=== PATIENT | female | born 1995 | race Caucasian/White ===

== ENCOUNTER 2016-11-29 05:29 | Emergency (ER) | payer BC, OTHER ==
[2016-11-29 06:33] LABS: % IMMATURE GRANULYOCYTES 0.2 % (0.0-1.1); ABSOLUTE IMMATURE GRANULOCYTES 0.02 10^3/uL (0.00-0.10); ADD DIFF? NO; ADD MORPH? NO; ADD SCAN? NO; ATYPICAL LYMPHOCYTE FLAG 0 (0-99); FRAGMENT RBC FLAG 0 (0-99); HEMATOCRIT 42.5 % (38.0-47.0); HEMOGLOBIN 14.8 g/dL (12.6-16.3); LEFT SHIFT FLG 0 (0-99); LIPEMIA HEMOLYSIS FLAG 90 (0-99); MEAN CELL HEMOGLOBIN 32.8 pg (27.9-34.1); MEAN CELL HEMOGLOBIN CONCENTR. 34.8 g/dL (32.4-36.7); MEAN CELL VOLUME 94.2 fL (81.5-99.8); MEAN PLATELET VOLUME 9.4 fL (8.7-11.7); PLATELET CLUMPS FLAG 0 (0-99); PLATELET COUNT 362 10^3/uL (150-400); RED BLOOD CELL COUNT 4.51 10^6/uL (4.18-5.33); RED CELL DISTRIBUTION WIDTH 12.2 % (11.5-15.2)
[2016-11-29 06:51] LABS: ANION GAP 16 mEq/L (8-16); CALCIUM 9.3 mg/dL (8.5-10.4); CARBON DIOXIDE 24 mEq/l (22-31); CHLORIDE 105 mEq/L (97-110); CREATININE 0.7 mg/dL (0.6-1.0); GLOMERULAR FILTRATION RATE > 60; GLUCOSE 84 mg/dL (70-100); POTASSIUM 3.9 mEq/L (3.5-5.2); SODIUM 145 mEq/L (134-144)
--- NOTE | 2016-11-29 07:06 | EDPHY ---
H & P Stated Complaint: LEFT HIP LAC - Personal History LMP (Females 10-55): IUD In Place Current Tetanus/Diphtheria Vaccine: Yes Current Tetanus Diphtheria and Acellular Pertussis (TDAP): Yes - Medical/Surgical History Hx Asthma: No Hx Chronic Respiratory Disease: No Hx Diabetes: No Hx Cardiac Disease: No Hx Renal Disease: No Hx Cirrhosis: No Hx Alcoholism: No Hx HIV/AIDS: No Hx Splenectomy or Spleen Trauma: No Other PMH: PMH: Depression, Social anxiety. PSH: Dental - Social History Smoking Status: Light smoker Time Seen by Provider: 11/29/16 05:40 HPI/ROS: Chief Complaint: Leg laceration, depression HPI: 21-year-old female with a history of depression presenting with a laceration in her left inguinal region. Patient admits that is a self- inflicted wound.. Patient states she has been increasingly depressed. She denies suicidal ideation but is feeling hopeless. Denies any other ingestions. Does have a past medical history of depression. Is on antidepressants. She has been compliant with her medications. Does admit to drinking some alcohol earlier. ROS: 10 point Review of Systems is negative except as noted in the HPI. PMH: Depression Social History: smoking, occasional alcohol, occasional marijuana Family History: non-contributory Physical Exam: Gen: Awake, Alert, No Distress HEENT: Nose: no rhinorrhea Eyes: PERRLA, EOMI Mouth: Moist mucosa Neck: Supple, no JVD Chest: nontender, lungs clear to auscultation Heart: S1, S2 normal, no murmur Abd: Soft, non-tender, no guarding Back: no CVA tenderness, no midline tenderness Ext: no edema, non-tender, she has a 4 cm linear laceration in her left inguinal canal into the subcutaneous fat. There is no deep tissue involvement there are also multiple old scars from prior cutting in the same region. Skin: no rash Neuro: CN II-XII intact, Sensation grossly intact, Strength 5/5 in bilateral upper and lower extremities (Gamal Ritchie) Constitutional: Initial Vital Signs Temperature (C) 37.1 C 11/29/16 05:32 Heart Rate 91 11/29/16 05:32 Respiratory Rate 18 11/29/16 05:32 Blood Pressure 136/71 H 11/29/16 05:32 O2 Sat (%) 95 11/29/16 05:32 O2 Delivery Mode Room Air Allergies/Adverse Reactions: No Known Allergies Allergy (Unverified 11/29/16 05:33) Home Medications: Medication Instructions Recorded ALPRAZolam [Xanax] 02/08/16 Vivance 02/08/16 buPROPion SR [Wellbutrin 100mg SR 02/08/16 (*)] Medical Decision Making Procedures: Procedure: Laceration repair. Verbal consent was obtained from the patient. The 4 cm laceration on the left inguinal canal was anesthetized in the usual fashion. The wound was irrigated, draped and explored to its base with a gloved finger. There were no deep structures involved. No tendon injury was identified. The wound was repaired with a 4-0 Ethilon running suture. The wound repair was uncomplicated. The procedure was performed by myself. (Gamal Ritchie) ED Course/Re-evaluation: 21-year-old female with a self-inflicted laceration to the left inguinal fold. Patient initially did not admit to how she sustained a laceration. Patient became tearful and admitted to depression and hopelessness. She was put on a detain her. She will require mental health evaluation. Med clearance labs have been ordered. 0700 patient signed out to Dr. Reese pending mental health evaluation. (Gamal Ritchie) 0700: assumed care of this pt at shift change. Self-inflicted laceration, now on a retainer. Awaiting evaluation. 3pm: Mental health evaluation in progress now. Signed over to Dr. Kelly at shift change. (Lola Reese) 1552: Patient has been seen evaluated by Magali CHERRY. They do not feel that the patient needs inpatient psychiatric hospitalization or criteria for an M1 hold. They feel comfortable letting her go. I did go and see and talk to the patient. She is resting comfortably she has no complaints she is agreeable discharge. She does not want hurt herself or anybody else. She has follow-up care in place. (Nicko Kelly) - Data Points Laboratory Results: Laboratory Results 11/29/16 06:25 11/29/16 06:25 11/29/16 11/29/16 11/29/16 06:25 06:25 06:25 WBC RBC Hgb Hct MCV MCH MCHC RDW Plt Count MPV Neut % (Auto) Lymph % (Auto) Dolores % (Auto) Eos % (Auto) Baso % (Auto) Nucleat RBC Rel Count Absolute Neuts (auto) Absolute Lymphs (auto) Absolute Monos (auto) Absolute Eos (auto) Absolute Basos (auto) Absolute Nucleated RBC Immature Gran % Immature Gran # Sodium Potassium Chloride Carbon Dioxide Anion Gap BUN Creatinine Estimated GFR Glucose Calcium Beta HCG, Qual NEGATIVE Urine Opiates Screen NEGATIVE (NEGATIVE) Urine Barbiturates NEGATIVE (NEGATIVE) Ur Phencyclidine Scrn NEGATIVE (NEGATIVE) Ur Amphetamine Screen NEGATIVE (NEGATIVE) U Benzodiazepines Scrn NON-NEGATIVE H (NEGATIVE) Urine Cocaine Screen NON-NEGATIVE H (NEGATIVE) U Marijuana (THC) Screen NEGATIVE (NEGATIVE) Ethyl Alcohol 194 mg/dL H mg/dL (0-10) 11/29/16 11/29/16 06:25 06:25 WBC 9.25 10^3/uL 10^3/uL (3.80-9.50) RBC 4.51 10^6/uL 10^6/uL (4.18-5.33) Hgb 14.8 g/dL g/dL (12.6-16.3) Hct 42.5 % % (38.0-47.0) MCV 94.2 fL fL (81.5-99.8) MCH 32.8 pg pg (27.9-34.1) MCHC 34.8 g/dL g/dL (32.4-36.7) RDW 12.2 % % (11.5-15.2) Plt Count 362 10^3/uL 10^3/uL (150-400) MPV 9.4 fL fL (8.7-11.7) Neut % (Auto) 55.8 % % (39.3-74.2) Lymph % (Auto) 36.9 % % (15.0-45.0) Dolores % (Auto) 6.5 % % (4.5-13.0) Eos % (Auto) 0.1 % L % (0.6-7.6) Baso % (Auto) 0.5 % % (0.3-1.7) Nucleat RBC Rel Count 0.0 % % (0.0-0.2) Absolute Neuts (auto) 5.16 10^3/uL 10^3/uL (1.70-6.50) Absolute Lymphs (auto) 3.41 10^3/uL H 10^3/uL (1.00-3.00) Absolute Monos (auto) 0.60 10^3/uL 10^3/uL (0.30-0.80) Absolute Eos (auto) 0.01 10^3/uL L 10^3/uL (0.03-0.40) Absolute Basos (auto) 0.05 10^3/uL 10^3/uL (0.02-0.10) Absolute Nucleated RBC 0.00 10^3/uL 10^3/uL (0-0.01) Immature Gran % 0.2 % % (0.0-1.1) Immature Gran # 0.02 10^3/uL 10^3/uL (0.00-0.10) Sodium 145 mEq/L H mEq/L (134-144) Potassium 3.9 mEq/L mEq/L (3.5-5.2) Chloride 105 mEq/L mEq/L (97-110) Carbon Dioxide 24 mEq/l mEq/l (22-31) Anion Gap 16 mEq/L mEq/L (8-16) BUN 7 mg/dL mg/dL (7-23) Creatinine 0.7 mg/dL mg/dL (0.6-1.0) Estimated GFR > 60 Glucose 84 mg/dL mg/dL (70-100) Calcium 9.3 mg/dL mg/dL (8.5-10.4) Beta HCG, Qual Urine Opiates Screen Urine Barbiturates Ur Phencyclidine Scrn Ur Amphetamine Screen U Benzodiazepines Scrn Urine Cocaine Screen U Marijuana (THC) Screen Ethyl Alcohol Departure - Departure Disposition: Home, Routine, Self-Care Clinical Impression: Laceration, Suicidal ideation Condition: Good Instructions: Laceration (ED), Suicide Prevention for Adults (ED) Additional Instructions: Return for suture removal in 10 days. Referrals: Donna Corey FNP [Primary Care Provider] - As per Instructions
[2016-11-29 08:06] LABS: ETHANOL SERUM 194 mg/dL (0-10)
[2016-11-29 08:07] VITALS: TEMP 98.2
[2016-11-29 13:02] VITALS: BP 100/60; PULSE 80; RESP 14; O2SAT 96
== END 2016-11-29 16:13 | disposition home or self-care (01) ==
PROC: 0HQ7XZZ Repair Abdomen Skin, External Approach (ICD-10-PCS; principal; 2016-11-29)
DX: S31.119A Laceration without foreign body of abdominal wall, unspecified quadrant without penetration into peritoneal cavity, initial encounter (principal); F17.200 Nicotine dependence, unspecified, uncomplicated; X78.9XXA Intentional self-harm by unspecified sharp object, initial encounter; Y99.8 Other external cause status; Y93.89 Activity, other specified
CPT/HCPCS: 80305; G0480

== ENCOUNTER → 2018-06-03 | Outpatient (CLI) | payer OTHER | LOC: BMCIMAGING 14:15 | PROVIDERS: ATTEND Physician Assistant | DX: M25.562 Pain in left knee (principal) ==

== ENCOUNTER → 2018-06-10 | Outpatient (CLI) | payer OTHER | LOC: FIMAGING 14:18 | PROVIDERS: ATTEND Physician Assistant | DX: S83.512A Sprain of anterior cruciate ligament of left knee, initial encounter (principal) ==